=== PATIENT | male | born 1940 | race Caucasian/White ===

== ENCOUNTER 2025-03-03 17:51 | Inpatient (IN) | payer MEDICARE ==
[~2025-03-03] VITALS: Ht 165.1 cm; Wt 72.6 kg
[2025-03-03 18:57] LABS: PLATELET COUNT (AUTO) 161 K/uL (150-450); RED BLOOD CELL COUNT(AUTO) 3.88 MIL/uL (4.5-6.0); RED CELL DISTRIBUTION WIDTH 13.4 % (11.5-15.0); WHITE BLOOD COUNT (AUTO) 7.3 K/uL (4.3-11.0)
[2025-03-03 19:14] LABS: CALCIUM, SERUM 9.0 mg/dL (8.5-10.1); CREATININE 1.3 mg/dL (0.6-1.3); SODIUM SERUM 143.0 mmol/L (136-145); UREA NITROGEN, BLOOD 27.0 mg/dL (7-18)
[2025-03-03 19:17] LABS: ASPARTATE AMINOTRANSFERASE 49.0 U/L (15-37); TOTAL PROTEIN, SERUM 6.9 g/dL (6.4-8.2)
[2025-03-04] MEDS ORDERED: OLANZAPINE 10 MG VIAL IM ONE (05:55)
[2025-03-04] MEDS: OLANZAPINE 10 MG VIAL IM ONE (06:52)
[2025-03-04 07:30] VITALS: O2SAT 99
[2025-03-04] MEDS ORDERED: MAG HYDROX/AL HYDROX/SIMETH 30 ML UDC PO PRN (09:30)
[2025-03-04] MEDS ORDERED: ZOLPIDEM TARTRATE 5 MG TABLET PO PRN (09:30)
[2025-03-04] MEDS ORDERED: MAGNESIUM HYDROXIDE 30 ML UDC PO PRN (09:30)
[2025-03-04] MEDS ORDERED: ACETAMINOPHEN 325 MG TABLET PO PRN (09:30)
[2025-03-04 16:00] VITALS: BP 118/69; TEMP 98; O2SAT 99
[2025-03-04] MEDS: IBUPROFEN 600 MG TABLET PO PRN (17:45)
[2025-03-04 20:50] VITALS: BP 109/55; TEMP 98.1; O2SAT 97
[2025-03-04] MEDS: TRAZODONE 50 MG TABLET PO SCH (21:21)
[2025-03-04] MEDS: OXCARBAZEPINE 150 MG TABLET PO SCH (21:21)
[2025-03-05] MEDS: ZOLPIDEM TARTRATE 5 MG TABLET PO PRN (00:31)
[2025-03-05 08:00] VITALS: BP 155/78; TEMP 98.7; O2SAT 98
[2025-03-05 08:26] LABS: LDL 70 mg/dL (0-99)
[2025-03-05 08:28] LABS: ASPARTATE AMINOTRANSFERASE 47.0 U/L (15-37); CALCIUM, SERUM 8.8 mg/dL (8.5-10.1); CREATININE 1.4 mg/dL (0.6-1.3); SODIUM SERUM 146.0 mmol/L (136-145); TOTAL PROTEIN, SERUM 6.0 g/dL (6.4-8.2); UREA NITROGEN, BLOOD 26.0 mg/dL (7-18)
[2025-03-05 16:00] VITALS: BP 145/71; TEMP 98.6; O2SAT 98
[2025-03-05] MEDS ORDERED: MEMA5TAB42 PO (16:12)
[2025-03-05] MEDS ORDERED: QUET25TA PO (16:12)
[2025-03-05] MEDS ORDERED: ESCI5TAB PO (16:12)
[2025-03-05] MEDS: OXCARBAZEPINE 150 MG TABLET PO SCH (16:42)
[2025-03-05 19:56] VITALS: BP 155/74; TEMP 98.7; O2SAT 100
[2025-03-06 08:00] VITALS: BP 143/68; TEMP 97.7; O2SAT 96
[2025-03-06] MEDS: QUETIAPINE FUMARATE 25 MG TABLET PO PRN (09:38)
[2025-03-06 16:00] VITALS: BP 116/60; TEMP 98.1; O2SAT 97
[2025-03-06 19:58] VITALS: BP 112/74; TEMP 98; O2SAT 100
[2025-03-06] MEDS: QUETIAPINE FUMARATE 25 MG TABLET PO SCH (21:11)
[2025-03-07 08:00] VITALS: BP 130/87; TEMP 98.1; O2SAT 97
[2025-03-07 16:00] VITALS: BP 126/77; TEMP 97.7; O2SAT 97
[2025-03-07 20:04] VITALS: BP 159/78; TEMP 97.8; O2SAT 100
[2025-03-07] MEDS: OXCARBAZEPINE 150 MG TABLET PO SCH (21:20)
[2025-03-08 08:00] VITALS: BP 148/66; TEMP 97.9; O2SAT 97
[2025-03-08 16:00] VITALS: BP 144/71; TEMP 98.8; O2SAT 100
[2025-03-09 08:00] VITALS: BP 146/83; TEMP 97.2; O2SAT 98
[2025-03-09 16:00] VITALS: BP 129/99; TEMP 97.8; O2SAT 97
[2025-03-09] MEDS: QUETIAPINE FUMARATE 25 MG TABLET PO SCH (21:08)
[2025-03-09 21:37] VITALS: BP 140/80; TEMP 98; O2SAT 97
[2025-03-10 08:00] VITALS: BP 151/73; TEMP 97.7; O2SAT 98
[2025-03-10 16:08] VITALS: BP 161/73; TEMP 98.1; O2SAT 98
[2025-03-10 21:43] VITALS: BP 177/87; TEMP 98.1; O2SAT 99
[2025-03-11 08:00] VITALS: BP 159/69; TEMP 97.9; O2SAT 95
[2025-03-11 16:00] VITALS: BP 150/80; TEMP 97.9; O2SAT 98
[2025-03-11 20:06] VITALS: BP 130/74; TEMP 97.5; O2SAT 95
[2025-03-12 08:00] VITALS: BP 144/79; TEMP 98.8; O2SAT 98
[2025-03-12 16:00] VITALS: BP 151/82; TEMP 98.6; O2SAT 99
[2025-03-12] MEDS: ENSURE ENLIVE 237 ML LIQUID (VANILLA) PO SCH (16:33)
[2025-03-12 19:34] VITALS: BP 155/72; TEMP 98.6; O2SAT 99
[2025-03-13 08:00] VITALS: BP 132/93; TEMP 98.3; O2SAT 97
[2025-03-13] MEDS: MEMANTINE HCL 5 MG TABLET PO SCH (11:01)
[2025-03-13] MEDS: AMLODIPINE BESYLATE 5 MG TABLET PO SCH (11:02)
[2025-03-13 16:02] VITALS: BP 152/69; TEMP 98.6; O2SAT 98
[2025-03-13 19:51] VITALS: BP 138/75; TEMP 98.4; O2SAT 100
[2025-03-14 08:00] VITALS: BP 157/86; TEMP 98.7; O2SAT 97
[2025-03-14 16:00] VITALS: BP 132/62; TEMP 97.8; O2SAT 99
[2025-03-14 20:01] VITALS: BP 121/81; TEMP 97.8; O2SAT 100
[2025-03-15 08:00] VITALS: BP 145/74; TEMP 97.8; O2SAT 97
[2025-03-15 16:00] VITALS: BP 123/62; TEMP 98; O2SAT 99
[2025-03-15 20:12] VITALS: BP 157/72; TEMP 98; O2SAT 98
[2025-03-15] MEDS: TRAZODONE 50 MG TABLET PO SCH (21:27)
[2025-03-16 07:45] LABS: CALCIUM, SERUM 8.7 mg/dL (8.5-10.1); CREATININE 0.9 mg/dL (0.6-1.3); SODIUM SERUM 138.0 mmol/L (136-145); UREA NITROGEN, BLOOD 20.0 mg/dL (7-18)
[2025-03-16 08:00] VITALS: BP 129/67; TEMP 98; O2SAT 96
[2025-03-16 08:32] VITALS: BP 129/67
== END 2025-03-16 13:57 | DRG 885 ==
LOC: ER 18:25 → GPS 03-04 07:17
PROVIDERS: ADMIT Acupuncturist; ATTEND Nurse Practitioner Family
DX: F32.3 Major depressive disorder, single episode, severe with psychotic features (principal); N17.9 Acute kidney failure, unspecified; G93.41 Metabolic encephalopathy; F03.918 Unspecified dementia, unspecified severity, with other behavioral disturbance; D63.8 Anemia in other chronic diseases classified elsewhere; E86.0 Dehydration; I10 Essential (primary) hypertension; F29 Unspecified psychosis not due to a substance or known physiological condition; F03.92 Unspecified dementia, unspecified severity, with psychotic disturbance; F03.94 Unspecified dementia, unspecified severity, with anxiety; F03.93 Unspecified dementia, unspecified severity, with mood disturbance; R45.851 Suicidal ideations; F41.9 Anxiety disorder, unspecified; R79.89 Other specified abnormal findings of blood chemistry; R26.9 Unspecified abnormalities of gait and mobility; M89.8X9 Other specified disorders of bone, unspecified site; Z79.899 Other long term (current) drug therapy; F39 Unspecified mood [affective] disorder
CPT/HCPCS: 36415; 70450-TC; 76770-TC; 80048-TC; 80053-TC; 80061-TC; 80076-TC; 82962-TC; 83735-TC; 85025-TC; 87081-TC; 87086-TC; J3490

== ENCOUNTER 2025-04-05 12:55 | Emergency (ER) | payer MEDICARE ==
[~2025-04-05] VITALS: Ht 167.6 cm; Wt 72.6 kg
[~2025-04-05 12:55] MED LIST: ESCI5TAB PO; MEMA5TAB42 PO; QUET25TA PO
--- NOTE | 2025-04-05 13:07 | NUR ---
SPOKE TO NURSE DENIZ, INFORMED PT IS BEING DISCHARGED BACK TO FACILITY WITH PRESCRIBTION FOR ANTIBIOTICS
--- NOTE | 2025-04-05 13:10 | NUR ---
Seen and I/D done by MD. Dressing applied. Await discharge
[2025-04-05 13:11] VITALS: BP 128/70; TEMP 98.2
--- NOTE | 2025-04-05 13:11 | NUR ---
CLIFF [id number] "from [facility] sent here for Right food abcess"
[2025-04-05] MEDS ORDERED: MUPI15CR TP (13:28)
[2025-04-05] MEDS ORDERED: CLIN300C12 PO (13:28)
--- NOTE | 2025-04-05 13:37 | NUR ---
Patient discharged to home in stable condition. Written and verbal after care instructions given. Patient verbalizes understanding of instruction. [facility] AT BEDSIDE
[2025-04-05 13:38] VITALS: O2SAT 99
== END 2025-04-05 13:40 ==
LOC: ER 13:14
DX: S90.821A Blister (nonthermal), right foot, initial encounter (principal); F03.90 Unspecified dementia, unspecified severity, without behavioral disturbance, psychotic disturbance, mood disturbance, and anxiety; Z79.899 Other long term (current) drug therapy; X58.XXXA Exposure to other specified factors, initial encounter; Y93.89 Activity, other specified; Y92.89 Other specified places as the place of occurrence of the external cause; Y99.8 Other external cause status